=== PATIENT | male | born 1950 | race Caucasian/White ===

== ENCOUNTER 2018-12-14 13:45 | Emergency (ER) | payer MEDICARE, OTHER ==
--- NOTE | 2018-12-14 14:06 | ED Physician Documentation ---
General Adult - HISTORIAN Historian: patient - HPI Chief Complaint: General Adult (Choked on Potatoes) Additional Information: Patient is a 68-year-old male that presents to the ER from [facility] with caregiver. Patient states "I don't know why I am here- I am fine- I coughed it up after it got stuck". Caregiver states that patient choked and the heimlich was given. Patient states he already coughed it up prior to that. He states that he was in his room drinking coffee when staff member told him he had to go to the ER. Explained that it is good to just be evaluated and make sure he was ok. Had patient drink a glass of water- no difficulty swallowing- he drank the whole glass and said "see, I told you I am fine". Assessment negative. Onset: minutes Timing: better, gone now Severity: mild Modifying Factors: Choked on uncooked potato Further Comments: no - ROS CONST: no problems EYES/ENT: none CVS/RESP: none GI/: none MS/SKIN/LYMPH: none NEURO/PSYCH: denies: difficulty with speech - PAST HX Past History: other (History of head bleeds, alzheimers, alcohol abuse) Immunizations: UTD Allergies/Adverse Reactions: Allergies Allergy/AdvReac Type Severity Reaction Status Date / Time pseudoephedrine Allergy Verified 12/14/18 14:10 [From [facility]] Home Medications: Ambulatory Orders Medication Instructions Recorded Citalopram Hydrobromide [Celexa] 20 mg PO QD 12/14/18 Labetalol HCl 100 mg PO BID 12/14/18 Lacosamide [Vimpat] 100 mg PO BID 12/14/18 Levothyroxine Sodium [Unithroid] 25 mcg PO DAILY 12/14/18 Lisinopril 10 mg PO DAILY 12/14/18 Memantine HCl [Namenda] 10 mg PO BID 12/14/18 Multivit-Min/Iron/Vitamin K [Adult 1 each PO DAILY 12/14/18 Multivitamin-Iron Tablet] Omeprazole 40 mg PO DAILY 12/14/18 Quetiapine Fumarate [Seroquel] 50 mg PO TID 12/14/18 Ziprasidone HCl [Geodon] 40 mg PO BID 12/14/18 - SOCIAL HX Smoking History: less than 1 pack/day Alcohol Use: other (history of alcohol abuse) Drug Use: none - FAMILY HX Family History: No - REVIEWED ASSESSMENTS Nursing Assessment Reviewed: Yes Vitals Reviewed: Yes General Adult Physical Exam - PHYSICAL EXAM GENERAL APPEARANCE: no distress EENT: ENT inspection normal, pharynx normal, RAMO NECK: normal inspection, supple RESPIRATORY: breath sounds normal CVS: heart sounds normal, equal pulses ABDOMEN: soft, normal bowel sounds, no distension, non-tender BACK: normal inspection SKIN: warm/dry, normal color EXTREMITIES: normal range of motion NEURO: oriented X3, CN's nml as tested, motor nml, sensation nml, mood/affect nml Discharge Clincal Impression: Choked on food Clincal Impression: (Ruled Out): Choking due to food (regurgitated) Referrals: Moe Islas MD [Primary Care Provider] - 2 Days Additional Instructions: Chew food approx. 15 times before swallowing Increase fluid intake Return to ER if you develop shortness of breath or difficulty swallowing Condition: Good Disposition: 01 HOME, SELF-CARE Decision to Admit: NO Decision Time: 14:04
[2018-12-14 14:09] VITALS: BP 116/61
== END 2018-12-14 14:06 | disposition home or self-care (01) ==
LOC: ED 13:45
DX: R09.89 Other specified symptoms and signs involving the circulatory and respiratory systems (principal); Z72.0 Tobacco use
CPT/HCPCS: 99281